=== PATIENT | female | born 1990 | race Caucasian/White ===

== ENCOUNTER 2017-01-04 14:58 | Emergency (ER) | payer OTHER ==
[~2017-01-04 14:58] MED LIST: ACETAMINOPHEN325 MG PO; ATARAX PO; AZITHROMYCIN250 MG PO; BIRTH CONTROL PILL PO; CIPRO PO; CLARITIN10 MG; DICLOFENAC PO; DIFLUCAN PO; FLEXERIL10 M1 PO; KEFLEX500 MG PO; KETOPROFEN PO; MEDROL4 MG/DOSE- PO; NASACORT AQ16.5 GM; OMNICEF300 M1 PO; OXISTAT TP; PYRIDIUM PO; RONDEC TABLET1 TAB PO; SILVADENE TOP; ULTRAM PO; ZITHROMAX PO
[2017-01-04 16:12] LABS: BASOPHIL# 0.1 X10e3 (0-0.3); BASOPHIL% 0.5 % (0-2.5); EOSINOPHIL% 0.2 % (0.0-7.0); HEMATOCRIT 46.7 % (35.0-45.0); HEMOGLOBIN 15.3 gm/dL (12.0-16.0); LYMPHOCYTE# 2.2 X10e3 (1.0-3.5); LYMPHOCYTE% 13.3 % (17.0-45.0); MEAN CELL VOLUME 91.1 FL (83-96); MEAN CORPUSCULAR HEMOGLOBIN 29.9 PG (28-34); MEAN CORPUSCULAR HGB CONC 32.8 g/dL (30-36); MEAN PLATELET VOLUME 10.2 FL (6.5-11.5); MONOCYTE# 0.9 X10e3 (0-1.0); MONOCYTE% 5.5 % (3.0-12.0); NEUTROPHIL# 13.2 X10e3 (1.5-7.1); NEUTROPHIL% 80.5 % (40-75); PLATELET COUNT 297 X10e3 (140-420); RED BLOOD COUNT 5.12 X10e (3.90-5.30); RED CELL DISTRIBUTION WIDTH 13.2 % (11.0-15.5); WHITE BLOOD COUNT 16.4 X10e3 (4.0-10.5)
[2017-01-04 16:21] LABS: DIFF IND YES
[2017-01-04] MEDS ORDERED: ALKA-SELTZER125 MG PO (16:22)
[2017-01-04] MEDS ORDERED: PATIENT'S PHARMACY (16:22)
[2017-01-04] MEDS ORDERED: NEXPLANON68 MG (16:24)
[2017-01-04 16:32] LABS: DIFFERENTIAL COMMENT Y
[2017-01-04 16:34] LABS: PLATELET ESTIMATE NORMAL (NORMAL); RBC NORMAL YES
[2017-01-04 16:39] LABS: BLOOD UREA NITROGEN 12 mg/dL (9-23); BUN/CREATININE RATIO 13.33; CALCIUM SERUM 9.3 mg/dL (8.4-10.2); CARBON DIOXIDE 23 mmol/L (22-31); CHLORIDE 106 mmol/L (100-111); CREATININE SERUM 0.9 mg/dL (0.6-1.4); GLOM FILT RATE Estimated 88.9 mL/min (>60); GLUCOSE FASTING 93 mg/dL (70-110); POTASSIUM 3.6 mmol/L (3.5-5.1); SODIUM 139 mmol/L (135-145)
[2017-01-04 16:40] LABS: ALCOHOL BLOOD <5 mg/dL (0)
[2017-01-04 16:48] LABS: URINE SOURCE CLEAN CATCH
[2017-01-04 17:09] LABS: URINE APPEARANCE CLEAR; URINE BLOOD 1+ (NEG); URINE COLOR DK YELLOW; URINE GLUCOSE NEG (NEG); URINE KETONE 1+ (NEG); URINE LEUKOCYTE ESTERASE TRACE (NEG); URINE NITRATE POS (NEG); URINE PH 5.5 (5-8); URINE PROTEIN 3+ (NEG); URINE SPECIFIC GRAVITY 1.026 (1.003-1.035)
[2017-01-04 17:11] LABS: URINE BILIRUBIN NEG (NEG)
[2017-01-04 17:12] LABS: URBCS1 AUWI 0-2 /[HPF] (0-2); URINE BACTERIA AUWI NEG (NEGATIVE); URINE SQUAMOUS EPITHELIAL CELL FEW /[HPF]
[2017-01-04 17:24] LABS: AMPHETAMINE NEG (NEG); BARBITURATES NEG (NEG); BENZODIAZEPINES NEG (NEG); COCAINE NEG (NEG); MARIJUANA POS (NEG); OPIATES NEG (NEG); TRICYCLIC ANTIDEPRESSANTS NEG (NEG); U METHADONE NEG (NEG)
== END 2017-01-04 22:20 | disposition short-term general hospital (02) ==
LOC: CED 14:58 → CFTX 15:54 → CED 15:54 → CFTX 22:20
PROVIDERS: Emergency Medicine
DX: F32.9 Major depressive disorder, single episode, unspecified (principal); F17.200 Nicotine dependence, unspecified, uncomplicated; Z88.0 Allergy status to penicillin; Z88.5 Allergy status to narcotic agent; Z79.899 Other long term (current) drug therapy
CPT/HCPCS: 80048; 80307; 81003; 85025; 99285; G0480

== ENCOUNTER 2017-01-04 16:27 | Inpatient (IN) | payer OTHER ==
--- NOTE | ~2017-01-04 | DS ---
Unit #: [id number] #: [id number] Patient: DAY WHITAKER [id number] [place] [address] [id number] MR#: [id number] NAME: DAY WHITAKER. ROOM: P252 Age: 26 Sex: F Admission Date: 01/04/2017 : 1990 Discharge Date: 01/06/2017 Attending Physician: Venkata Duque M.D. DISCHARGE SUMMARY REASON FOR ADMISSION The patient is a 26-year-old white female, admitted to the [address] [place] [address] with increasing depression and suicidal ideation. HOSPITAL COURSE The patient was admitted to the [address] [place] [address] and placed on suicide precautions. She was begun on Lexapro 10 mg daily to address depressive symptoms and tolerated the medication without complaint. She was active within the therapeutic milieu and much brighter when seen by this physician on 01/06/2017, on that date, she requested discharge and was in agreement with plan for followup in the intensive outpatient program provided by this facility. As per her request, discharge was ordered. FINAL DIAGNOSES Major depressive disorder, single episode; mild cannabis use disorder. DISPOSITION ON DISCHARGE The patient is discharged on the following medications; Lexapro 10 mg daily for depression. DISCHARGE INSTRUCTIONS No dietary or physical restrictions were placed on the patient at the time of discharge. FOLLOWUP Followup will take place through the auspices of community mental health resources and the intensive outpatient program provided by this facility. PROGNOSIS The patient's prognosis is considered fair. Dictated by... Venkata Duque M.D. CB/amanda TD: 01/07/2017 02:35 JOB #: [id number] Unit #: [id number] #: [id number] Patient: DAY WHITAKER DISCHARGE SUMMARY Page 1 of 1 X Venkata Duque MD X DISCHARGE SUMMARY
--- NOTE | ~2017-01-04 | PA ---
Unit #: [id number] #: [id number] Patient: DAY WHITAKER [id number] [place] [address] [id number] MR#: [id number] NAME: DAY WHITAKER. ROOM: P252 Age: 26 Sex: F Admission Date: 01/04/2017 : 1990 Date of Assessment: 01/05/2017 Attending Physician: Venkata Duque M.D. Admitting Physician: Venkata Duque M.D. Primary Care Physician: Primary Care Physician No PSYCHIATRIC ASSESSMENT IDENTIFYING INFORMATION The patient is a 26-year-old single white female admitted to the [address] [place] [address] Unit after presenting to this facility voicing increasing suicidal ideation. CHIEF COMPLAINT None given. INFORMANT Patient, reliability is good. HISTORY OF PRESENT ILLNESS The patient is a 26-year-old white female admitted in transfer from [facility] where she presented voicing positive suicidal ideation. The patient reports multiple stressors including a stressful relationship with her fiance. She has also been forced to live in her grandfather's home with her 2 children and reports that their relationship is strained as a result. The patient reports increasing symptoms and suicidal ideation. She reports daily cannabis use. She had reported suicidal ideation with plan to drive her car into a wall. The patient reports previous psychiatric contact as an adolescent but has never been on antidepressant or other psychotropic medication. She complains of chronically poor sleep. She denies loss of appetite. PAST PSYCHIATRIC HISTORY As above. PAST MEDICAL HISTORY The patient reports that she has been diagnosed with hypertension in the past. MEDICATIONS None. ALLERGIES None reported. FAMILY HISTORY Noncontributory. SOCIAL HISTORY The patient lives with her 2 children, fiance, and grandfather. She is not presently employed. She did complete "some school" and most recently worked at [employer]. She reports daily use of cannabis and is a Unit #: [id number] #: [id number] Patient: DAY WHITAKER A smoker. MENTAL STATUS EXAMINATION Examination at this time reveals the patient to be an obese white female appearing her stated age. She is in no apparent physical distress at the time of examination. She is awake, alert, and oriented in all spheres. Her mood is mildly dysphoric, her affect constricted. Speech is generally well coherent. There are no gross deficits in memory or cognition noted. Intelligence is judged to be in the average range based on fund of knowledge. The patient is cooperative throughout the interview. She is currently endorsing positive suicidal ideation. She denies homicidal ideation. She denies any psychotic symptoms. Her judgment and insight are intact. ASSETS AND LIABILITIES The patient's assets: Motivation for change. Liabilities: Daily cannabis use. Financial stressors, homelessness. DIAGNOSTIC IMPRESSION 1. Major depressive disorder, single episode. 2. Cannabis use disorder. TREATMENT PLAN The patient remains hospitalized for safety and stabilization. A trial of Lexapro 10 mg daily will be initiated, but the patient is sternly warned regarding potential interaction of this medication with cannabis. The patient will participate in appropriate order of milieu activities and Melatonin has been added on a p.r.n. basis for sleep. Suicide precautions are in place. ESTIMATED LENGTH OF STAY 3 to 5 days. The followup will take place through the auspices of community mental health resources and the intensive outpatient program provided by this facility. Dictated by... Venkata Duque M.D. [place]is TD: 01/05/2017 13:25 JOB #: [id number] PSYCHIATRIC ASSESSMENT Page 1 of 1 X Venkata Duque MD X PSYCHIATRIC ASSESSMENT
--- NOTE | ~2017-01-04 | HP ---
Unit #: [id number] #: [id number] Patient: ALIS WHITAKER [id number] [place] [address] [id number] MR#: [id number] NAME: ALIS WHITAKER. ROOM: P252 Age: 26 Sex: F Admission Date: 01/04/2017 : 1990 Attending Physician: Venkata Duque M.D. Admitting Physician: Venkata Duque M.D. Primary Care Physician: No Primary Care Physician HISTORY AND PHYSICAL HISTORY OF PRESENT ILLNESS Alis is a 26-year-old admitted to [address] [place] [address] with depression and verbalizing wanting to hurt herself. PAST MEDICAL HISTORY 1. High blood pressure. 2. Obesity. PAST SURGICAL HISTORY C section x2. ALLERGIES Penicillin, codeine. SOCIAL HISTORY Smokes one pack per day. Drinks alcohol on occasion and denies illicit drug use. FAMILY HISTORY Medically noncontributory. REVIEW OF SYSTEMS CONSTITUTIONAL: No fever or chills. HEENT: Denies any sore throat, ear pain or runny nose. CARDIOVASCULAR: Denies chest pain, irregular heart rhythm or palpitations. CHEST: Denies shortness of breath or cough. No hemoptysis. GASTROINTESTINAL: Denies nausea, vomiting, diarrhea or chronic constipation. ENDOCRINE: Denies history of increased thirst or urination. No recent significant weight loss or gain. GENITOURINARY: Denies dysuria, frequency, or hematuria. SKIN: Denies any rashes. HEMATOLOGIC: Denies history of increased bleeding or bruising. MUSCULOSKELETAL: Denies any hot, swollen joints. No generalized muscle pain. NEUROLOGIC: Denies problems with vision or speech. No frequent, severe headaches. No numbness, tingling or weakness in any extremities. Denies loss of bladder or bowel control. CURRENT MEDICATIONS 1. Lexapro 10 mg every day. 2. Nicotine patch 21 mg every day. 3. Multivitamin 1 every day. Unit #: [id number] #: [id number] Patient: ALIS WHITAKER 4. Melatonin 5 mg every day. 5. Detox protocol (?). PHYSICAL EXAMINATION GENERAL: Alert, obese, and in no apparent distress. VITAL SIGNS: Blood pressure 130/90, heart rate 80, respirations 16, temperature 98.6, weight 215 pounds, and height 5 feet, 1 inch. SKIN: Warm and dry without rash or lesion. HEENT: Normocephalic. TMs not viewed. Oral and nasal passages clear. Conjunctivae clear. PERRLA. EOMs intact. NECK: Supple without lymphadenopathy or thyromegaly. HEART: Regular rate and rhythm without murmur. LUNGS: Clear. ABDOMEN: Soft, nontender. : Not done. EXTREMITIES: No evidence of cyanosis, clubbing or edema. Moves all without focal deficit. NEUROLOGICAL: Grossly within normal limits. Cranial Nerves: II: Visual mora are intact. III, IV AND : Extraocular movements are intact. Pupils are equal, round and reactive to light. V: Facial sensation is grossly normal. VII: Facial movements and expression are normal. VIII: Auditory acuity grossly intact. IX, X: Uvula is midline. Phonation is normal. XI: Patient shrugs shoulders and turns head normally. XII: Tongue protrudes in the midline. Sensory and Motor Function: Sensory and motor sensation is grossly normal. Motor: moves all extremities well. Coordination: Gait is normal. Deep Tendon Reflexes: Intact. RECOMMENDATIONS PSYCHIATRIC: Per psychiatrist. MEDICAL: I see no contraindication to participating in facility's activities. MEDICAL PROGNOSIS Good. MEDICAL CONDITION Stable. Dictated by... Heidi Villalba P.APraul-Cyndie. for Lenny Rodriguez/higinio TD: 01/06/2017 10:29 JOB #: [id number] Unit #: [id number] #: [id number] Patient: ALIS WHITAKER HISTORY AND PHYSICAL Page 1 of 1 X Heidi Villalba HISTORY AND PHYSICAL
[~2017-01-04 16:27] MED LIST changes: +ALKA-SELTZER125 MG PO; +NEXPLANON68 MG; +PATIENT'S PHARMACY
== END 2017-01-06 14:45 | disposition home or self-care (01) | DRG 881 ==
LOC: P2L 21:22
DX: F32.9 Major depressive disorder, single episode, unspecified (principal); R45.851 Suicidal ideations; I10 Essential (primary) hypertension; F12.10 Cannabis abuse, uncomplicated; E66.9 Obesity, unspecified; Z88.0 Allergy status to penicillin; F17.210 Nicotine dependence, cigarettes, uncomplicated
CPT/HCPCS: 84703; 86592